=== PATIENT | female | born 1975 | race Two or more races ===

== ENCOUNTER → 2021-03-09 09:10 | Outpatient (BNVA) | payer OTHER, SELFPAY | PROVIDERS: Referring Provider Internal Medicine; Visit Provider Surgery | DX: Z98.890 Other specified postprocedural states (principal); Z86.018 Personal history of other benign neoplasm | CPT/HCPCS: 99202 ==

== ENCOUNTER 2023-08-03 08:02 | Outpatient (REF) | payer OTHER, SELFPAY ==
--- NOTE | 2023-08-03 08:07 | EEG_ITS ---
This is a 16-channel EEG with an EKG lead. The patient is reported awake during the tracing. Background EEG rhythm is about 10 hertz 5 to 20 microvolt posteriorly, lower amplitude fast anteriorly. Intermittently periods of generalize theta to delta range. Large amplitude discharges were noted. Photic stimulation did not produce any significant driving and hyperventilation was unremarkable. Cardiac lead did not reveal any significant abnormality. IMPRESSION: Mildly abnormal EEG suggestive of generalized paroxysmal disorder. MD SHABANA Snow/DAWSON / [phone]
== END 2023-08-03 08:03 | disposition home or self-care (01) ==
LOC: HO.NEURO 08:02
PROVIDERS: PCP Internal Medicine; Visit Provider Psychiatry & Neurology Neurology
DX: R55 Syncope and collapse (principal)
CPT/HCPCS: 95816

== ENCOUNTER 2025-01-21 08:32 | Outpatient (AMB) | payer OTHER, SELFPAY ==
--- NOTE | 2025-01-21 08:34 | A.OFFVIS_ITS ---
Intake Visit Reasons: 6m Allergies No Known Allergies Allergy (Verified 08/20/21 12:38) HPI Comments Details: 49 years old woman with possible seizure disorder and chronic insomnia treated with small dose of quetiapine. She also had an episode of passing out while she was suffering from RSV related illness. An EEG was done that revealed generalized discharges but she never had any seizure like or syncopal episode again. She is presenting for a follow-up visit for medication management of chronic insomnia. The patient has a history of chronic insomnia, which was particularly severe around 2014. Previous medication trials include sertraline, which caused involuntary facial movements; trazodone; and hydroxyzine, which was not helpful. The patient reports that quetiapine is the most effective medication for the insomnia and has been taking it since April 2023. The patient takes a small dose, cutting the prescribed 25 mg pill into four parts, and finds it works well to enable sleep. The patient also reports a history of a possible seizure in December 2022, which occurred after fainting in the bathroom due to a severe RSV infection accompanied by a loss of consciousness. This event has not recurred. An EEG performed last year showed some mild abnormality. [facility] Medical History (Updated 01/21/25 @ 08:40 by Feng Rothman MD) Cerebral microvascular disease Anxiety Depression Insomnia Surgical History (Updated 03/09/21 @ 09:32 by Cedric Gifford MD) Status post excision of lipoma Review of Systems Narrative - Neurological: Reports a history of a possible seizure with loss of consciousness and involuntary facial movements with a past medication. - Psychiatric: Reports a history of depression, which was exacerbated by a previous medication. - Sleep: Reports chronic insomnia, which is currently well-managed with medication. Physical Exam Neuro Other: Mental Status: Alert and oriented to person, place, and time. Normal attention. Normal spontaneous speech, fluency, and comprehension. Cranial Nerves: CN II: Visual lui full to confrontation, visual acuity intact. CN III, IV, : Pupils equal, round, reactive to light and accommodation. Extraocular movements are normal. CN V: Facial sensation is normal. CN VII: Facial movements symmetrical. CN VIII: Hearing intact to bedside conversation is normal. CN IX, X: Palate elevates symmetrically. CN XI: Shoulder shrug and head turn symmetrical. CN XII: Tongue midline without atrophy or fasciculations. Extrapyramidal: Full facial expressions and blinking. No rigidity. Movements are appropriate with no tremor or abnormality. Speech: Normal; no dysarthria or tremor. Assessment & Plan Assessment & Plan (1) Insomnia: Comment: Meds tried: Trazodone, hydroxyzine MRI brain WO at [place] in Dec 2022: Mild MVD EEG at [facility] [place] in July 2024: Generalized theta discharges Code(s): G47.00 - Insomnia, unspecified Category: Medical Qualifiers: Insomnia type: psychophysiologic Qualified Code(s): F51.04 - Psychophysiologic insomnia Plan Impression: 1. Chronic insomnia while treated with small dose of quetiapine 2. Possible seizure disorder Recommendations: 1. Quetiapine 25 mg 1 at night 2. EEG Orders: Orders EEG Routine Today R55 - Syncope and collapse Medications: New quetiapine 25 mg PO BEDTIME 90 tabs 1RF Coding Level of Care Code Est Pt Level 3 (93202) Diagnoses Psychophysiological insomnia F51.04 Insomnia type: psychophysiologic
--- OUTSIDE RECORDS SUMMARY | 2025-01-21 08:43 | XMS_ITS | Encounter Summary ---
Author Organization [facility] Address [address] [place] [address] Care Team Providers Care Marketing Support Specialist Name Role Phone Unavailable Primary Care Provider Unavailabl e Encounter Details Date Type Department Care Team (Latest Contact Info) Description 01/06/2019 Abstract [facility] CONVERSIONS Dental, Provider, DDS Social History Tobacco Use Types Packs/Day Years Used Date Smoking Tobacco: Never Assessed Comments Unknown Sex and Gender Information Value Date Recorded Sex Assigned at Female 12/19/2021 10:24 AM EDT Legal Sex Female 10:24 AM EDT Gender Identity Female 12/19/2021 10:24 AM EDT Sexual Orientation Straight 12/19/2021 10 :24 AM EDT documented as of this encounter Plan of Treatment Upcoming Encounters Date Type Department Care Team (Late st Contact Info) Description 03/18/2025 8:00 AM EST Office Visit [facility] [address] [place] [address] David Larsen documented as of this encounter Visit Diagnoses Not on filedocumented in this encounter
--- OUTSIDE RECORDS SUMMARY | 2025-01-21 08:43 | XMS_ITS ---
Author Name [facility] Organization Unknown History of Medication Use Medication Directions Dispensed Refills Start Date End Date Stat phenazopyridine (PYRIDIUM) 200 mg tablet Take 1 tablet (200 mg total) by mouth 3 (three) times a day. 01/23/2024 03/24/2024 active ondansetron (ZOFRAN) 4 mg tablet Take 1 tablet (4 mg total) by mouth every 8 (eight) hours if needed for nausea or vomiting. 01/07/2024 active oxyCODONE (ROXICODONE) 5 mg immediate release tablet Take 1 tablet (5 mg total) by mouth every 6 (six) hours if needed for severe pain. Max Daily Amount: 20 mg 01/07/2024 active simethicone (MYLICON) 80 mg chewable tablet Chew 1 tablet (80 mg total) every 6 (six) hours if needed (gas pain / bloating). 01/07/2024 active ibuprofen (ADVIL,MOTRIN) 800 mg tablet Take 1 Tablet by mouth every 8 hours as needed for Pain. 08/24/2023 01/07/2024 aborted amLODIPine (NORVASC) 5 mg tablet Take 1.5 tablets (7.5 mg total) by mouth 1 (one) time each day. 07/18/2023 active atorvastatin (LIPITOR) 10 mg tablet Take 1 Tablet by mouth daily. 07/18/2023 active cholecalciferol (VITAMIN D-3) 1,250 mcg (50,000 unit) capsule 03/26/2023 active QUEtiapine (SEROquel) 25 mg tablet Take 1 Tablet by mouth at bedtime. 12/26/2022 active docusate sodium (COLACE) 100 mg tablet Take 1 Tablet by mouth 2 Times Daily. 08/31/2022 01/07/2024 aborted pantoprazole (PROTONIX) 40 mg EC tablet Take 1 Tablet by mouth. 07/29/2021 active acetaminophen (TYLENOL) 500 mg tablet Take 1 Tab by mouth every 6 hours as needed for Pain. 01/21/2020 01/07/2024 aborted fexofenadine (NATALIIA) 180 mg tablet Take 1 tablet (180 mg total) by mouth 1 (one) time each day. active Allergies Allergen Reaction Severity Comment Documented Date Source Statu s OTHER Seasonal Allergies 08/01/2018 [facility] active Problems Problem Status Onset Date Problem Type Date of Resoluti on Source Insomnia active 2015-02-23 ProblemAct [facility] Hemangioma of liver active 2009-07-27 ProblemAct [facility] Closed fracture of right ankle active 2022-12-26 ProblemAct [facility] Irritable bowel syndrome active 2006-04-11 ProblemAct [facility] Shortness of breath active 2022-12-26 ProblemAct [facility] RSV infection active 2022-12-26 ProblemAct [facility] Abnormal finding on MRI of brain active 2023-03-02 ProblemAct [facility] Postcoital bleeding active 2021-11-15 ProblemAct [facility] Chest congestion active 2022-12-26 ProblemAct C [facility] Hypertension active 2022-12-26 ProblemAct [facility] Acute cough active 2022-12-26 ProblemAct [facility] Iron deficiency anemia active 2022-08-30 ProblemAct [facility] Fibroid uterus active 2023-08-24 ProblemAct [facility]_ [facility] Mixed hyperlipidemia active 2007-11-07 ProblemAct [facility] Non-ulcer dyspepsia active 2009-08-19 ProblemAct [facility] GERD (gastroesophageal reflux disease) active 2012-03-12 ProblemAct [facility] Immunizations Vaccine Date Source Lot Number Status Influenza trivalent, with pr eservative (Fluzone; Afluria) 6mo and older 10/30/2023 [facility] completed [employer] SARS-CoV-2 COVID-19, mRNA, LNP-S, preservative free 10/30/2023 [facility] [id number] completed Influenza Quadravalent, MDCK , 0.5ml, preservative free (Flucelvax) 6mo and older 03/02/2023 [id number] Influenza Quadravalent, MDCK , 0.5ml, preservative free (Flucelvax) 6mo and older 10/25/2021 [facility] [id number] completed Influenza trivalent, with pr eservative (Fluzone; Afluria) 6mo and older 12/05/2020 [facility] [id number] completed Influenza, Unspecified 12/20/2017 [facility] Influenza trivalent, with pr eservative (Fluzone; Afluria) 6mo and older 11/19/2017 [facility] [id number] completed Influenza Quadravalent, MDCK , 0.5ml, preservative free (Flucelvax) 6mo and older 12/13/2016 [facility] [id number] completed Influenza trivalent, with pr eservative (Fluzone; Afluria) 6mo and older 12/13/2016 [facility] [id number] completed Influenza, Unspecified 12/13/2016 [facility] co mpleted Influenza trivalent, 0.5mL, preservative free (Fluarix; FluLaval; Fluzone) ages 6mo and older (Afluria) 3 years and older 11/29/2014 [facility] [id number] completed Influenza trivalent, with pr eservative (Fluzone; Afluria) 6mo and older 11/29/2014 [facility] [id number] completed Influenza, Unspecified 12/14/2013 [facility] Tdap Tetanus diptheria acell ular pertussis (Boostrix; Adacel) 7yo and older 06/03/2013 [facility] [id number] completed Influenza trivalent, 0.5mL ( Fluzone High-dose) 65yo and older 12/31/2012 [facility]le brenda Influenza trivalent, with pr eservative (Fluzone; Afluria) 6mo and older 12/31/2012 [facility] completed Hepatitis B (Rkyklqt-P-Iuynv , Recombivax HB-Adult) 19yo and older 01/09/2002 [facility] 0159M complet ed Hepatitis B (Gynxgma-N-Nsutu , Recombivax HB-Adult) 19yo and older 12/06/2001 [facility] 0159M complet ed Diptheria & Tetanus, 6wks to less than 7yo 08/12/1996 [facility] [id number] completed
--- OUTSIDE RECORDS SUMMARY | 2025-01-21 08:43 | XMS_ITS | Clinical Summary ---
Author Organization [facility] Address [address] [place] [address] Phone Care Team Providers Care Surveillance Operator Name Role Phone Sarthak Gonzales MD Primary Care Provider [phone] Allergies Active Allergy Reactions Criticality Noted Date Comments Other 08/01/2018 Seasonal Allergies Medications cholecalcifero l (VITAMIN D-3) 1,250 mcg (50,000 unit) capsule 03/26/19 24 Active QUEtiapine (SEROquel) 25 mg tablet Take 1 Tablet by mouth at bedtime. 12/27/19 23 Active pantoprazole (PROTONIX) 40 mg EC tablet Take 1 Tablet by mouth. 07/30/19 22 Active fexofenadine (NATALIIA) 180 mg tablet Take 1 tablet (180 mg total) by mouth 1 (one) time each day. Active simethicone (MYLICON) 80 mg chewable tablet Chew 1 tablet (80 mg total) every 6 (six) hours if needed (gas pain / bloating). 10 tablet 01/07/20 24 Active Additional Information Patient not taking.Reported on 06/16/2024 amLODIPine (NORVASC) 2.5 mg tablet Take 1 tablet (2.5 mg total) by mouth 1 (one) time each day. 90 tablet 3 06/17/19 25 Active amLODIPine (NORVASC) 5 mg tablet Take 1 tablet (5 mg total) by mouth 1 (one) time each day. 90 each 3 06/17/19 25 2025 Active fluticasone propionate (FLONASE) 50 mcg/actuation nasal spray Administer 2 sprays into each nostril 1 (one) time each day. Shake gently. Before first use, prime pump. After use, clean tip and replace cap. 16 g 5 06/17/19 25 2025 Active azelastine (ASTELIN) 137 mcg (0.1 %) nasal spray Active fluconazole (Diflucan) 150 mg tablet Take 1 tablet (150 mg total) by mouth. 11/02/19 Active ibuprofen (ADVIL,MOTRIN) 800 mg tablet Take 1 tablet (800 mg total) by mouth every 8 hours. 01/02/20 Active metroNIDAZOLE (METROCREAM) 0.75 % cream APPLY TO THE FACE ONCE TO TWICE DAILY. Active nitrofurantoin , macrocrystal-m onohydrate, (MACROBID) 100 mg capsule TAKE 1 CAPSULE BY MOUTH EVERY 12 HOURS WITH MEALS FOR 7 DAYS Active phenazopyridin e (PYRIDIUM) 200 mg tablet Take 1 tablet (200 mg total) by mouth. 05/17/19 Active tirzepatide, weight loss, (Zepbound) 2.5 mg/0.5 mL solutionIndica tions:Class 1 obesity due to excess calories with serious comorbidity in adult, unspecified BMI Inject 2.5 mg under the skin every 7 (seven) days. 2 mL 3 09/18/19 25 Active atorvastatin (LIPITOR) 10 mg tablet TAKE 1 TABLET BY MOUTH EVERY DAY 90 tablet 1 11/14/19 25 Active polyethylene glycol (Golytely) 236-22.74-6.74 -5.86 gram solution Take 4L by mouth once for one dose. May substitue any PEG. Starting at 2PM the day before your procedure drink 1 8oz glasses at your own pace until you complete half of the gallon. Finish 2nd half of the gallon at 8PM. 4000 mL 01/20/20 25 Active bisacodyL (DULCOLAX) 5 mg EC tablet Take 2 tablets by mouth right before beginning bowel prep. See instructions provided by the office 2 tablet 01/20/20 25 Active oxyCODONE (ROXICODONE) 5 mg immediate release tabletIndicati ons:acute post op pain Take 1 tablet (5 mg total) by mouth every 6 (six) hours if needed for severe pain. Max Daily Amount: 20 mg 8 tablet 01/07/20 24 2024 Discontinued(T herapy completed) ondansetron (ZOFRAN) 4 mg tabletIndicati ons:prevention of post-operative nausea and vomiting Take 1 tablet (4 mg total) by mouth every 8 (eight) hours if needed for nausea or vomiting. 10 tablet 01/07/20 24 2024 Discontinued(T herapy completed) losartan (COZAAR) 50 mg tablet Take 1 tablet (50 mg total) by mouth 1 (one) time each day. 2024 Discontinued(F ormulary change) omeprazole (PriLOSEC) [address] capsule Take 2 capsules (20 mg total) by mouth 1 (one) time each day at the same time. 2024 Discontinued(T herapy completed) polyethylene glycol (Golytely) 236-22.74-6.74 -5.86 gram solution Take 4L by mouth once for one dose. May substitue any PEG. Starting at 6PM the night before your procedure drink 1 8oz glasses at your own pace until you complete half of the gallon. Finish 2nd half of the gallon 5 hours before your procedure. 4000 mL 07/31/19 25 2024 Discontinued bisacodyL (DULCOLAX) 5 mg EC tablet Take 2 tablets by mouth right before beginning bowel prep. See instructions provided by the office 2 tablet 07/31/19 25 2024 Discontinued Active Problems Problem Noted Date Diagnosed Date Mass of soft tissue of left lower extremity 04/20 Pilar cyst of scalp 10/18/2023 Fibroid uterus 08/24/2023 Overview (11/15/2023): 2021 pelvic sono The uterus measures 10.8 x 5.9 x 6.6 cm. Again noted are multiple uterine fibroids. The largest fibroid was remeasured. It is exophytic on the right posteriorly, measures 5.5 x 3.8 x 5.5 cm, previously 4.3 x 4.2 x 5.1 cm. There is no appreciable endometrial abnormality. The endometrial thickness is 3 mm maximum. Right ovary is unremarkable. Previously noted cyst resolved. Right ovarian volume is 5.7 cc. Left ovary was not visualized. There is no free fluid in the cul-de-sac. Fibroid uterus 08/24/2023 Overview (07/17/2024): 2021 pelvic sono The uterus measures 10.8 x 5.9 x 6.6 cm. Again noted are multiple uterine fibroids. The largest fibroid was remeasured. It is exophytic on the right posteriorly, measures 5.5 x 3.8 x 5.5 cm, previously 4.3 x 4.2 x 5.1 cm. There is no appreciable endometrial abnormality. The endometrial thickness is 3 mm maximum. Right ovary is unremarkable. Previously noted cyst resolved. Right ovarian volume is 5.7 cc. Left ovary was not visualized. There is no free fluid in the cul-de-sac. Last Assessment & Plan: I discussed surgical and non-surgical options for management of fibroid uterus. She does not desire to take time off work and does not want to have incisions if she can avoid it. She would like to see the [facility] to discuss US ablative measures. She was referred. Abnormal finding on MRI of brain 03/02/2023 Overview (11/15/2023): Nonspecific white matter signal abnormalities in both cerebral hemispheres during eval for syncope, see note 12/26/2022, seeing neurology Acute cough 12/26/2022 Chest congestion 12/26/2022 Closed fracture of right ankle 12/26/2022 Hypertension 12/26/2022 RSV infection 12/26/2022 Shortness of breath 12/26/2022 Iron deficiency anemia 08/30/2022 Hypertensive disorder 02/01/2022 Hyperlipidemia 02/01/2022 Postcoital bleeding 11/15/2021 Overview (11/15/2023): Last Assessment & Plan: We reviewed common causes of bleeding during/after intercourse including infection, polyps, fibroids, lacerations, cervical ectropion and malignancy. Exam unremarkable today - cervix appears normal. She has no history of abnormal pap smears and pap smear is up to date. GC/CT and wet prep collected to r/o infection, will treat as indicated. Discussed with the patient the most likely cause of bleeding is the presence of fibroids. Patient reassured. All questions answered. Insomnia 02/23/2015 GERD (gastroesophageal reflux disease) 3 Non-ulcer dyspepsia 08/19/2009 Hemangioma of liver 07/27/2009 Overview (11/15/2023): Hemangioma x 2 on ultrasound of 06/25/2009, 6 month follow-up recommended No change on US 01/2010 Mixed hyperlipidemia 11/07/2007 Irritable bowel syndrome 04/11/2006 Overview (11/15/2023): normal EGD 07/11/2006. Performed for the evaluation of epigastric abdominal pain. Encounters Date Type Department Care Team Description 12/29/2024 4:30 PM EST Office Visit Adult Medicine [address] [phone] Sarthak Gonzales MD Hypertension, unspecified type (Primary Dx); Mixed hyperlipidemia; Irritable bowel syndrome, unspecified type; Over weight; Gastroesophageal reflux disease, unspecified whether esophagitis present; Right foot pain 11/03/2024 Telephone Urogynecology [address] [phone] Yumiko Somers MD from Last 3 Months Immunizations Immunization Administration Dates Next Due COVID-19 (Pfizer/Comirnaty) 12yo and older 10/30/2023 Diptheria & Tetanus, 6wks to less than 7yo 08/12/1996 Hepatitis B (Rugsptz-Y-Sqwcf , Recombivax HB-Adult) 19yo and older 01/09/2002,12/06/2001 Influenza Quadravalent, MDCK , 0.5ml, preservative free (Flucelvax) 6mo and older 03/02/2023,10/25/2021,12/13/2016 Influenza Quadrivalent, 0.5m l, preservative free (Fluarix; FluLaval; Fluzone) ages 6mo and older (Afluria) 3yo and older 12/05/2020,11/19/2017 Influenza trivalent, 0.5mL ( Fluzone High-dose) 65yo and older 12/31/2012 Influenza trivalent, 0.5mL, preservative free (Fluarix; FluLaval; Fluzone) ages 6mo and older (Afluria) 3 years and older 11/29/2014 Influenza trivalent, MDCK, 0 .5mL, preservative free (Flucelvax) 6mo and older 10/30/2023 Influenza trivalent, recombi nant, 0.5mL, preservative free (Flublok) 9yo and older 12/26/2024 Influenza trivalent, with preservative (Fluzone; Afluria) 6mo and older 10/30/2023,12/05/2020,12/05/2020,2017,11/19/2017,12/13/2016,11/29/2014,1 03/02/2012 Influenza, Unspecified 12/20/2017,12/13/2016, Pfizer SARS-CoV-2 COVID-19, mRNA, LNP-S, preservative free 10/30/2023 Tdap Tetanus diptheria acell ular pertussis (Boostrix; Adacel) 7yo and older 06/03/2013 Zoster recombinant (Shingrix ) 19yo and older 12/26/2024 Surgical History Surgery Date Site/Laterality Comments ESOPHAGOGASTRODUODENOSCOPY 07/11/2006 PROCEDURE: [place] ESOPHAGOGASTRODUODENOSCOPY TRANSORAL DIAGNOSTIC TUBAL LIGATION 03/13/2004 PROCEDURE: HISTORICAL TUBAL LIGATION OTHER SURGICAL HISTORY PROCEDURE: ---- OTHER ----; COMMENT: lasik eye surgery Medical History Medical History Date Comments Irritable bowel syndrome DX:Irri table bowel syndrome GERD (gastroesophageal reflux disease) 03/12/2012 DX:GERD (gastroesophageal reflux disease) Fall 11/15/2021 DX:Fall Family History Medical History Relation Name Comments Diabetes Father Heart attack Maternal Grandfather Breast cancer Mother at age 63 Hypertension Mother cholesterol Colon cancer Neg Hx Ovarian cancer Neg Hx Relation Name Status Comments Father Maternal Grandfather Mother Social History Tobacco Use Types Packs/Day Years Used Date Smoking Tobacco: Never Smokeless Tobacco: Never Tobacco Cessation:Counseling Given: Not Answered Alcohol Use Standard Drinks/Week Comments Not Currently 0 (1 standard drink = 0.6 oz pur e alcohol) Comments No Sex and Gender Information Value Date Recorded Sex Assigned at Female 01/07/2024 6:17 AM EST Legal Sex Female 2:52 AM EST Gender Identity Female 01/07/2024 6:17 AM EST Sexual Orientation Straight 01/07/2024 6: 17 AM EST Obstetrics History Last Filed Vital Signs Vital Sign Reading Time Taken Comments Blood Pressure 109/75 12/29/2024 4:50 PM EST Pulse 81 12/29/2024 4:50 PM EST Temperature 35.9 C (96.7 F) 12/29/2024 4:50 PM EST Respiratory Rate 12 12/29/2024 4:50 PM EST Oxygen Saturation 93% 12/29/2024 4:50 PM EST Inhaled Oxygen Concentration - - Weight 71.7 kg (158 lb) 12/29/2024 4:50 PM EST Height 157.5 cm (5' 2 ) 12/29/2024 4:50 PM EST Body Mass Index 28.9 12/29/2024 4:50 PM EST Plan of Treatment Upcoming Encounters Date Type Department Care Team (Late st Contact Info) Description 02/02/2025 10:00 AM EST Appointment [facility] Endoscopy [address] [place] [phone] Abundio Huang DO [address] [facility] [address] [place] [address] Health Maintenance Due Date Last Done Comments Colorectal Cancer Screening: Colonoscopy 1975 Hepatitis B Vaccines (3 of 3 - 19+ 3-dose series) 06/06/2002 01/09/2002, 12/06/2001 HIV Screening 01/28/2022 Hepatitis C Screening 01/28/2022 Social Influencers of Health Screening 01/28/2022 Breast Cancer Screening 02/04/2023 02/04/2021, 01/20 DTaP,Tdap,and Td Vaccines (3 - Td or Tdap) 06/04/2023 06/03/2013, 08/12/1996 Pneumococcal Vaccine: 50+ Years (1 of 1 - PCV) 07/25/2023 Depression Screening 02/20/2024 COVID-19 Vaccine ( season) 2024 10/30/2023, 10/30/2023, 01/07/2021, Additional history exists Hypertension/CHF/CAD Annual BMP Blood Test 12/25/2024 12/26/2023, 05/24/2023 Zoster Vaccines (2 of 2) 02/20/2025 12/26/2024 Cervical Cancer Screening: HPV 02/21/2028 02/20/2023 Cholesterol Screening (Lipid Panel) 05/23/2028 05/24/2023 RSV Immunization Adult Patients (1 - 1-dose 75+ series) 2048 Influenza Vaccine Completed 12/26/2024, , 10/30/2023, Additional history exists HIB Vaccines Aged Out No longer eligi ble based on patient's age to complete this topic HPV Vaccines Aged Out No longer eligi ble based on patient's age to complete this topic Hepatitis A Vaccines Aged Out No long er eligible based on patient's age to complete this topic IPV Vaccines Aged Out No longer eligi ble based on patient's age to complete this topic MMR Vaccines Aged Out No longer eligi ble based on patient's age to complete this topic Meningococcal ACWY Vaccine Aged Out N o longer eligible based on patient's age to complete this topic Meningococcal B Vaccine Aged Out No l onger eligible based on patient's age to complete this topic RSV Immunization Patients Under 20 months Aged Out No longer eligible based on patient's age to complete this topic Varicella Vaccines Aged Out No longer eligible based on patient's age to complete this topic Medical Devices Implanted Type Area Making Machine Catcher Device Identifier Shelf Expiration Date Model / Serial / Lot Powder Surgicel Absorbable Hemostat 3gr - Sn/A - [id number] Implanted:Qty: 1 on 01/07/2024 by Yumiko Somers MD at [facility] Hemostasis N/A: Uterus [id number] / N/A / N/A Procedures Procedure Name Priority Date/Time Associated Diagnosis Comments BASIC METABOLIC PANEL Routine 12/26/2023 11:32 AM EST Preop examination Primary hypertension Mixed hyperlipidemia Tiredness LIPID PANEL Routine 05/24/2023 HM HPV Routine 02/20/2023 SCREENING MAMMOGRAPHY BI 2-VIEW BREAST INC CAD Routine 02/04/2021 4:46 PM EST Encounter for screening mammogram for malignant neoplasm of breast from Last 3 Months or Most Recently Relevant to Health Maintenance Results * Basic metabolic panel (12/26/2023 11:32 AM EST) Sodium 141 133 - 145 mmol/L LAB CHEMISTRY METHOD 12/26/2023 2:57 PM [facility] Potassium 4.0 3.5 - 5.5 mmol/L LAB CHEMISTRY METHOD 12/26/2023 2:57 PM [facility] Chloride 107 96 - 110 mmol/L LAB CHEMISTRY METHOD 12/26/2023 2:57 PM [facility] CO2 29 21 - 32 mmol/L LAB CHEMISTRY METHOD 12/26/2023 2:57 PM [facility] Anion Gap 5 3 - 11 LAB CHEMISTRY METHOD 12/26/2023 2:57 PM [facility] Glucose 86 70 - 100 mg/dL LAB CHEMISTRY METHOD 12/26/2023 2:57 PM [facility] BUN 12 5 - 25 mg/dL LAB CHEMISTRY METHOD 12/26/2023 2:57 PM [facility] Creatinine 0.83 0.50 - 1.10 mg/dL LAB CHEMISTRY METHOD 12/26/2023 2:57 PM [facility] eGFR 86 >=60 mL/min/1. 73m2 LAB CHEMISTRY METHOD 12/26/2023 2:57 PM [facility] Comment:Calculation based on the Chronic Kidney Disease Epidemiology Collaboration (CKD-EPI) equation refit without adjustment for race. BUN/Creatinine Ratio 14.5 LAB CHEMISTRY METHOD 12/26/2023 2:57 PM [facility] Calcium 9.6 8.5 - 10.5 mg/dL LAB CHEMISTRY METHOD 12/26/2023 2:57 PM [facility] Blood Venous blood specimen / Unknown Venipuncture / Unknown 12/26/2023 11:32 AM EST 12/26/2023 11:32 AM EST Woo Becker MD LAB BLOOD ORDERABLES Final Result [facility] [place] [facility] [address] [place] [address], [place] [phone] * Lipid panel (05/24/2023) LDL/HDL Ratio 2 0 - 4 Triglycerides 64 0 - 150 mg/dL Cholesterol 191 0 - 200 mg/dL HDL 79 >=40 mg/dL LDL Cholesterol 100 0 - 100 mg/dL Blood Venous blood specimen / Unknown Historical Provider LAB BLOOD ORDERABLES Kathia l Result * Cervical Cancer Screening: HPV (02/20/2023) Cervical Cancer Screening: HPV Negative, Abstracted Historical Provider HEALTH MAINTENANCE Final Result * SCREENING MAMMOGRAPHY BI 2-VIEW BREAST INC CAD (02/04/2021 4:46 PM EST) Anatomical Region Laterality Modality Radiographic Michelle ging 01/21/2020 10:5 6 AM EST Narrative 02/07/2021 4:19 PM EST This is a summary report. The complete report is available in the patient's medical record. If you cannot access the medical record, please contact the sending organization for a detailed fax or copy. Exam: Screening mammogram Findings: Digital bilateral full-field screening mammography performed with tomosynthesis and interpreted computer-aided detection. Comparison exams include as recent as 01/21/2020 and as far back as 12/06/2016. Breast parenchyma is heterogeneously dense, limiting mammographic sensitivity. New 1.5 cm circumscribed lesion in the outer left breast near the 3 o'clock position. Recommend additional imaging with ultrasound. Otherwise, no new suspicious mass, architectural distortion, or suspicious calcifications. Impression: Recommend ultrasound imaging on the left. No new suspicious findings on the right. The radiology department will recall the patient. BI-RADS 0-additional imaging evaluation needed Callback views: Left breast ultrasound Procedure Note Johana Dorman MD - 02/07/2022 This is a summary report. The complete report is available in thepatient's medical record. If you cannot access the medical record, pleasecontact the sending organization for a detailed fax or copy. Exam: Screening mammogram Findings: Digital bilateral full-field screening mammography performed withtomosynthesis and interpreted computer-aided detection. Comparison examsinclude as recent as 01/21/2020 and as far back as 12/06/2016. Breast parenchyma is heterogeneously dense, limiting mammographicsensitivity. New 1.5 cm circumscribed lesion in the outer left breast near the 3o'clock position. Recommend additional imaging with ultrasound. Otherwise, no new suspicious mass, architectural distortion, or suspiciouscalcifications. Impression: Recommend ultrasound imaging on the left. No new suspicious findings onthe right. The radiology department will recall the patient. BI-RADS 0-additional imaging evaluation needed Callback views: Left breast ultrasound us Chanelle Christiano VELA IMG XR PROCEDURES Final Result from Last 3 Months or Most Recently Relevant to Health Maintenance Insurance [facility] Advance Directives * Full Code - Default (Latest Code Status on File) Date Activated Date Inactivated Comments 01/07/2024 6:34 AM 01/07/2024 6:33 PM This is or sarah is used when code status has not been discussed with the patient, or code status is otherwise unknown/unconfirmed To update the patient's code status, place a code status order. Do not modify or discontinue any currently active code status orders. Care Teams Surveillance Operator Relationship Specialty Start Date End Date Sarthak Gonzales MD [address] [place] [id number] PCP - General Internal Medicine 03/02/21
--- OUTSIDE RECORDS SUMMARY | 2025-01-21 08:43 | XMS_ITS | Clinical Summary ---
Author Organization [employer] Address [address] [facility] [address] [place] [address] Care Team Providers Care Adzing And Boring Machine Operator Name Role Phone Unavailable Primary Care Provider Unavailabl e Allergies No known active allergies Medications omeprazole (PriLOSEC) [address] capsule Take 2 capsules by mouth at bed time. Active acetaminophen (Tylenol) 500 MG tablet take 1 tablet (500MG) by oral route every 6 hours as needed 01/01/2019 Active ibuprofen 800 MG tablet Take 1 tablet by mouth every 8 (eight) hours. 01/01/2019 Active amLODIPine (Norvasc) 5 MG tablet Take 5 mg by mouth in the morning. 01/18/2022 Active atorvastatin (Lipitor) 20 MG tablet Take 20 mg by mouth in the morning. 01/18/2022 Active QUEtiapine (SEROquel) 25 MG tablet 12/26/2022 Active cholecalciferol (Vitamin D-3) 1.25 MG (52186 UT) capsule 03/26/2023 Active fexofenadine (Vanna) 180 MG tablet Take 180 mg by mouth Once per day. Active fluticasone (Flonase) 50 MCG/ACT nasal spray SPRAY 1 SPRAY BY NASAL ROUTE EVERY DAY 01/13/2024 Active ondansetron (Zofran) 4 MG tablet Take 4 mg by mouth every 8 (eight) hours if needed. 01/07/2024 Active pantoprazole (ProtoNix) 40 MG EC tablet Take 1 Tablet by mouth. 07/29/2021 Active Tirzepatide-Hernandez ght Management (Zepbound) 5 MG/0.5ML solution auto-injector Inject under the skin. Active Active Problems Problem Noted Date Diagnosed Date Encounter for routine history and physical exam in female 02/04/2024 Pilar cyst of scalp 10/18/2023 Fibroid uterus 08/24/2023 Overview (02/04/2024): 2021 pelvic sono The uterus measures 10.8 [...] is no free fluid in the cul-de-sac. Abnormal finding on MRI of brain 03/02/2023 Overview (02/04/2024): Nonspecific white matter signal abnormalities in both cerebral hemispheres during eval for syncope, see note 12/26/2022, seeing neurology Shortness of breath 12/26/2022 RSV infection 12/26/2022 Closed fracture of right ankle 12/26/2022 Chest congestion 12/26/2022 Acute cough 12/26/2022 Iron deficiency anemia 08/30/2022 Hypertension 02/01/2022 Postcoital bleeding 11/15/2021 Overview (02/04/2024): Last Assessment & Plan: We reviewed common [...] dyspepsia 08/19/2009 Hemangioma of liver 07/27/2009 Overview (02/04/2024): Hemangioma x 2 on ultrasound of 06/25/2009, 6 month follow-up recommended No change on US 01/2010 Mixed hyperlipidemia 11/07/2007 Irritable bowel syndrome 04/11/2006 Overview (02/04/2024): normal EGD 07/11/2006. Performed for the evaluation of epigastric abdominal pain. Encounters Date Type Department Care Team Description 11/13/2024 8:00 AM EDT Office Visit [facility] [address] [place] [address] Donaldo Hyde from Last 3 Months Social History Tobacco Use Types Packs/Day Years Used Date Smoking Tobacco: Never Passive Smoke Exposure: Never Smokeless Tobacco: Never Tobacco Cessation:Counseling Given: Not Answered Alcohol Use Standard Drinks/Week Comments Never 0 (1 standard drink = 0.6 oz pur e alcohol) Comments Unknown Sex and Gender Information Value Date Recorded Sex Assigned at Female 12/19/2021 10:24 AM EDT Legal Sex Female 10:24 AM EDT Gender Identity Female 12/19/2021 10:24 AM EDT Sexual Orientation Straight 12/19/2021 10 :24 AM EDT Last Filed Vital Signs Vital Sign Reading Time Taken Comments Blood Pressure 112/70 09/10/2024 8:20 AM EDT Pulse 90 09/10/2024 8:20 AM EDT Temperature - - Respiratory Rate - - Oxygen Saturation - - Inhaled Oxygen Concentration - - Weight - - Height - - Body Mass Index - - Plan of Treatment Upcoming Encounters Date Type Department Care Team (Late st Contact Info) Description 03/18/2025 8:00 AM EST Office Visit [facility] [address] [place] [address] David Larsen Health Maintenance Due Date Last Done Comments CT Colonography 1973 Colonoscopy 1973 Colorectal Cancer Screening 1973 Depression Screening 1973 FIT DNA/Cologuard 1973 FIT 1973 FOBT 1973 HIV Screening 1973 Lipid Panel 1973 SDOH Screening 1973 Sigmoidoscopy 1973 Disability Screening 1973 Alcohol/Substance Use Screening 1985 Family Planning (PISQ) 1988 Hepatitis C Screening 07/25/1991 Hepatitis A Vaccines (1 of 2 - Risk 2-dose series) 1992 Pap Smear 1994 Hepatitis B Vaccines (3 of 3 - 19+ 3-dose series) 06/06/2002 01/09/2002, 12/06/2001 Cervical Cancer Screening 07/25/2003 HPV/Cotest 07/25/2003 Mammogram 2013 DTaP/Tdap/Td Vaccines (2 - Td or Tdap) 06/04/2023 06/03/2013, 08/12/1996 Pneumococcal Vaccine: 50+ Years (1 of 1 - PCV) 07/25/2023 RSV Patients and Patients Aged 60 years or older (1 - Risk 50-74 years 1-dose series) 07/25/2023 Zoster Vaccines (1 of 2) 07/25/2023 COVID-19 Vaccine ( season) 2024 10/30/2023, 01/07/2021, 04/09/2020, Additional history exists Influenza Vaccine (#1) 2024 , 10/30/2023, 03/02/2023, Additional history exists Dental X-Ray: Bitewings 01/29/2025 01/29/2024, 04/06 Dental Oral Exam 03/14/2025 09/10/2024, 11/2023, 05/11/2022 Dental Prophylaxis 03/14/2025 09/10/2024, 1 03/31/2023, 02/01/2023, Additional history exists Tobacco Screening 09/10/2025 09/10/2024 Dental X-Ray: Full Mouth 01/29/2027 01/29/2024 HIB Vaccines Aged Out No longer eligi [...] patient's age to complete this topic Meningococcal Vaccine Aged Out No ramin diamante eligible based on patient's age to complete this topic RSV under 20 months Aged Out No longe r eligible based on patient's age to complete this topic Rotavirus Vaccines Aged Out No longer eligible based on patient's age to complete this topic Procedures Procedure Name Priority Date/Time Associated Diagnosis Comments 12 DO RESIN-BASED COMPOSITE - 2 SURF, POSTERIOR Routine 11/13/2024 8:00 AM EDT PROPHYLAXIS - ADULT Routine 09/10/2024 8 :00 AM EDT PERIODIC ORAL EVALUATION - ESTABLISHED PATIENT Routine 09/10/2024 8:00 AM EDT INTRAORAL - COMPLETE SERIES OF RADIOGRAPHIC IMAGES Routine 01/29/2024 8:00 AM EST from Last 3 Months or Most Recently Relevant to Health Maintenance Insurance DENTAL - [facility] - [employer] PARTIAL (MEDICAID) * Guarantor: Carmen Travis Account Type Relation to Patient Date of Phone Billing Address [facility] [address] [address]
--- OUTSIDE RECORDS SUMMARY | 2025-01-21 08:43 | XMS_ITS | Encounter Summary ---
Author Organization [employer] [facility] Address [address] [facility] [address] [place] [address] Care Team Providers Care Pre Owned Sales Manager Name Role Phone Unavailable Primary Care Provider Unavailabl e Reason for Visit * Reason Onset Date Comments broken tooth next to implant 08/28/2024 Encounter Details Date Type Department Care Team ([facility] Contact Info) Description 08/28/2024 Telephone [facility] [address] [place], [place] [id number] Ry Ogden broken tooth next to implant Social History Tobacco Use Types Packs/Day Years Used Date Smoking Tobacco: Never Passive Smoke Exposure: Never Smokeless Tobacco: Never Alcohol Use Standard Drinks/Week Comments Never 0 (1 standard drink = 0.6 oz pur e alcohol) Comments Unknown Sex and Gender Information Value Date Recorded Sex Assigned at Female 12/19/2021 10:24 AM EDT Legal Sex Female 10:24 AM EDT Gender Identity Female 12/19/2021 10:24 AM EDT Sexual Orientation Straight 12/19/2021 10 :24 AM EDT documented as of this encounter Miscellaneous Notes * Telephone Encounter - Becky Rivas - 08/28/2024 8:39 AM EDT Patient called in stating that she has a broken tooth next to an implant . The tooth has been fixedbefore and broke again. She has today off and would like to get on the schedule today to prevent infection. She is not in pain or swelling therefore unable to schedule her on PAR side as an emergency. Please reach out to patient. She would like to hear from office today. documented in this encounter Plan of Treatment Upcoming Encounters Date Type Department Care Team ([facility] Contact Info) Description 03/18/2025 8:00 AM EST Office Visit [facility] [address] [facility] [place] [address] David Larsen documented as of this encounter Visit Diagnoses Not on filedocumented in this encounter
--- OUTSIDE RECORDS SUMMARY | 2025-01-21 08:43 | XMS_ITS | Encounter Summary ---
Author Organization [employer] [facility] Address [address] [facility] [address] [place] [address] Care Team Providers Care Seed Sales Manager Name Role Phone Unavailable Primary Care Provider Unavailabl e Encounter Details Date Type Department Care Team ([facility] Contact Info) Description 02/06/2022 Abstract [facility] [address] [place] [address] Juvenal Locke DDS [address] [place] [address] Social History Tobacco Use Types Packs/Day Years [...] Upcoming Encounters Date Type Department Care Team ([facility] Contact Info) Description 03/18/2025 8:00 AM EST Office Visit [facility] [address] [place] [address] David Larsen documented as of this encounter Procedures Procedure Name Priority Date/Time Associated Diagnosis Comments 3,13 PARTIAL DENTURE - RESIN Routine 02/06/2022 12:00 AM EST 14 CROWN - PORCELAIN/CERAMIC Routine 02/06/2022 12:00 AM EST 29 O COMPOSITE FILLING Routine 12:00 AM EST 20 DO COMPOSITE FILLING Routine 02/07/20 12:00 AM EST 32 B AMALGAM FILLING Routine 02/06/2022 12:00 AM EST 12 DO AMALGAM FILLING Routine 02/06/2022 12:00 AM EST 5 D AMALGAM FILLING Routine 02/06/2022 1 2:00 AM EST 15 MITALI AMALGAM FILLING Routine 12:00 AM EST 4 MO AMALGAM FILLING Routine 02/06/2022 12:00 AM EST 31 O AMALGAM FILLING Routine 02/06/2022 12:00 AM EST 2 DO AMALGAM FILLING Routine 02/06/2022 12:00 AM EST 30 EXTRACTION Routine 02/06/2022 12:00 AM EST 19 EXTRACTION Routine 02/06/2022 12:00 AM EST 17 EXTRACTION Routine 02/06/2022 12:00 AM EST 16 EXTRACTION Routine 02/06/2022 12:00 AM EST 13 EXTRACTION Routine 02/06/2022 12:00 AM EST 3 EXTRACTION Routine 02/06/2022 12:00 AM EST 1 EXTRACTION Routine 02/06/2022 12:00 AM EST 14 ROOT CANAL Routine 02/06/2022 12:00 AM EST documented in this encounter Visit Diagnoses Not on filedocumented in this encounter
--- OUTSIDE RECORDS SUMMARY | 2025-01-21 08:43 | XMS_ITS | Clinical Summary ---
Author Organization [facility] Address [address] [address] Phone Care Team Providers Care Teaching Associate Name Role Phone Sarthak Gonzales MD Primary Care Provider [phone] Allergies No known active allergies Medications QUEtiapine (SEROQUEL) 25 MG tablet 12/26/2022 Active amLODIPine (NORVASC) 5 MG tablet Take 1 tablet by mouth every morning. 07/18/2023 Active atorvastatin (LIPITOR) 10 MG tablet 09/15/2023 Active metroNIDAZOLE (METROCREAM) 0.75 % cream APPLY TO THE FACE ONCE TO TWICE DAILY. 08/30/2023 Active omeprazole (PRILOSEC) 10 MG capsule Take 2 capsules by mouth daily. Active Active Problems Problem Noted Date Diagnosed Date Pilar cyst of scalp 10/18/2023 Family History Medical History Relation Comments Diabetes Father Stroke Father Cancer Mother Diabetes Mother Hypertension Mother Stroke Mother Relation Status Comments Father Mother Social History Tobacco Use Types Packs/Day Years Used Date Smoking Tobacco: Never Smokeless Tobacco: Never Tobacco Cessation:Counseling Given: Not Answered Alcohol Use Standard Drinks/Week Comments Not Currently 0 (1 standard drink = 0.6 oz pur e alcohol) Education Answer Date Recorded Are you interested in more education? Not on kasi e 09/12/2023 Are you concerned about learning? Not on file 09/12/2023 No 09/12/2023 No 09/12/2023 Digital Access Answer Date Recorded No 09/12/2023 No 09/12/2023 Reliable internet access at home? Not on file 09/12/2023 Device with a working camera? Not on file Comments Unknown Sex and Gender Information Value Date Recorded Sex Assigned at Not on file Legal Sex Female 1:55 PM EDT Gender Identity Not on file Sexual Orientation Not on file Last Filed Vital Signs Vital Sign Reading Time Taken Comments Blood Pressure 120/77 09/19/2023 3:42 PM EDT Pulse 77 09/19/2023 3:42 PM EDT Temperature - - Respiratory Rate - - Oxygen Saturation - - Inhaled Oxygen Concentration - - Weight 76.2 kg (168 lb) 09/19/2023 3:42 PM EDT Height 157.5 cm (5' 2 ) 09/19/2023 3:42 PM EDT Body Mass Index 30.73 09/19/2023 3:42 PM EDT Plan of Treatment Health Maintenance Due Date Last Done Comments Adult Td,Tdap Booster 1973 DEPRESSION SCREENING 1985 HEPATITIS C SCREENING 07/25/1991 HIV ONE-TIME SCREENING (18-6 5 YEARS) 07/25/1991 SMOKING STATUS SCREENING (On ce After 26 Yrs) 07/25/1999 SCREENING FOR DIABETES 2008 MAMMOGRAM 2013 COLOGUARD 2018 COLONOSCOPY 2018 COLORECTAL CANCER SCREENING 2018 FIT TEST 2018 FOBT 2018 SIGMOIDOSCOPY 2018 VIRTUAL COLONOSCOPY 2018 PNEUMOCOCCAL VACCINES (50+ years) (1 of 1 - PCV) 07/25/2023 ZOSTER VACCINES (1 of 2) 07/25/2023 INFLUENZA VACCINE (#1) 2024 COVID-19 VACCINE ( - 2024-2 6 season) 2024 PAP SMEAR 02/20/2026 02/20/2023, 08/01/2018 LIPID PANEL 05/23/2028 05/24/2023 RSV VACCINE (1 - 1-dose 75+ series) 2048 HEPATITIS A VACCINES Aged Out No long er eligible based on patient's age to complete this topic HIB VACCINES Aged Out No longer eligi ble based on patient's age to complete this topic MENINGOCOCCAL VACCINES (ACWY) Aged Out No longer eligible based on patient's age to complete this topic MENINGOCOCCAL VACCINES (B) Aged Out N o longer eligible based on patient's age to complete this topic Medical Devices Not on file Insurance [employer] DIRECT [employer] [address] [place] [address] [place] [address] [place] [address] [employer] DIRECT [facility] [employer] DIRECT [facility] [employer] DIRECT Care Teams Teaching Associate Relationship Specialty Start Date End Date Sarthak Gonzales MD [address] [place] [address] PCP - General Internal Medicine 09/12/23 Additional Source Comments The information contained in this document represents components of the legal health record. It is not the complete legal health record.[facility]
== END 2025-01-21 08:48 | disposition home or self-care (01) ==
LOC: HO.HSM 08:33
PROVIDERS: PCP Internal Medicine; Visit Provider Psychiatry & Neurology Neurology
DX: F51.04 Psychophysiologic insomnia (principal)
CPT/HCPCS: 99213

== ENCOUNTER → 2025-01-21 08:32 | Outpatient (BNVA) | payer OTHER, SELFPAY | PROVIDERS: PCP Internal Medicine; Visit Provider Psychiatry & Neurology Neurology | DX: F51.04 Psychophysiologic insomnia (principal); R55 Syncope and collapse | CPT/HCPCS: 99212 ==